=== PATIENT | male | born 2000 | race Caucasian/White ===

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

== ENCOUNTER 2019-08-02 16:49 | Emergency (ER) | payer BC ==
[2019-08-02 17:01] VITALS: BP 130/66
--- NOTE | 2019-08-02 17:24 | UC ---
Complaint Male HPI - HPI Summary HPI Summary: Pt presents with gradual onset of left scrotal and testicular pain that began last evening and today. Pt states that he was climbing in and out of his apartments window due to his door lock breaking and being locked in and out of his apartment. He states that he strained himself by lifting himself by lifting himself in and out of the window. Pt also states he had unprotected sexual intercourse and may have been exposed to a STD - History of Current Complaint Chief Complaint: UCGeneralIllness Stated Complaint: UPPER LEFT LEG PAIN Time Seen by Provider: 08/02/19 17:04 Hx Obtained From: Patient Onset/Duration: Gradual Onset, Lasting Hours, Still Present Timing: Constant Severity Initially: Mild Severity Currently: Moderate Pain Intensity: 5 Location: Scrotum Character: Constant Pressure - mild pressure Aggravating Factor(s): Other - standing Alleviating Factor(s): Other - rest Associated Signs And Symptoms: Positive: Negative - Risk Factors Testicular Torsion: Negative - Allergies/Home Medications Allergies/Adverse Reactions: Allergies Allergy/AdvReac Type Severity Reaction Status Date / Time No Known Allergies Allergy Verified 08/02/19 16:58 Home Medications: Home Medications NK [No Home Medications Reported] 08/02/19 [History Confirmed 08/02/19] PMH/Surg Hx/FS Hx/Imm Hx Previously Healthy: Yes - Surgical History Surgical History: Yes Surgery Procedure, Year, and Place: R hand - Family History Known Family History: Positive: Hypertension, Non-Contributory - Social History Occupation: Student - [employer] Lives: Dormitory/Roommates Alcohol Use: Weekly Substance Use Type: Marijuana Substance Use Comment - Amount & Last Used: weekly Smoking Status (MU): Never Smoked Tobacco Have You Smoked in the Last Year: No - Immunization History Vaccination Up to Date: Yes Review of Systems All Other Systems Reviewed And Are Negative: Yes Constitutional: Positive: Negative Skin: Positive: Negative Eyes: Positive: Negative ENT: Positive: Negative Respiratory: Positive: Negative Cardiovascular: Positive: Negative Gastrointestinal: Positive: Negative Genitourinary: Positive: Other - left side testicle pain Motor: Positive: Negative Neurovascular: Positive: Negative Musculoskeletal: Positive: Negative Neurological: Positive: Negative Psychological: Positive: Negative Is Patient Immunocompromised?: No Physical Exam - Summary Physical Exam Summary: Ansley mckeon for genital exam. Triage Information Reviewed: Yes Appearance: Well-Appearing Vital Signs: Initial Vital Signs Temp 98.1 F 08/02/19 16:58 Pulse 107 08/02/19 16:58 Resp 18 08/02/19 16:58 BP 130/66 08/02/19 16:58 Pulse Ox 100 08/02/19 16:58 Vital Signs Reviewed: Yes Eye Exam: Normal ENT Exam: Normal Dental Exam: Normal Neck exam: Normal Respiratory Exam: Normal Respiratory: Positive: No respiratory distress Male Genital Exam: Positive: Normal Genitalia, Other - right testicle significantly higher than left. No masses, tenderness, varicocele, no mass, no strangualtion or discoloration noted. Pt declined pain with PE. Ansley Buitrago RN back up worker Musculoskeletal Exam: Normal Neurological Exam: Normal Psychological Exam: Normal Skin Exam: Normal Complaint Male Course/Dx - Course Course Of Treatment: Pt was recommended to go to closest ER for further testing and evaluation. Pt verbalized understanding and agreed to plan of care. - Differential Dx/Diagnosis Differential Diagnosis/HQI/PQRI: Epididymitis, Testicular Torsion, Urinary Tract Infection Provider Diagnosis: Testicular pain, left Discharge ED - Sign-Out/Discharge Documenting (check all that apply): Patient Departure All imaging exams completed and their final reports reviewed: No Studies - Discharge Plan Condition: Stable Disposition: HOME-RECOMMEND TO ED Patient Education Materials: Testicle Pain (ED), Scrotal Pain (ED) Referrals: [facility] [Outside] No Primary Care Phys,[facility] [Primary Care Provider] - Additional Instructions: It is recommended that that you go to the closest emergency room immediately for further evaluation and testing. - Billing Disposition and Condition Condition: STABLE Disposition: Home-Recommend to ED
[2019-08-06 12:39] LABS: Chlamydia trachomatis NAA Negative (Negative); Neisseria gonorrhoeae (GC) NAA Negative (Negative)
== END 2019-08-02 17:33 | disposition home health service (06) ==
LOC: UCCORT 16:49
DX: N50.812 Left testicular pain (principal)
CPT/HCPCS: 87491; 87591; 99212; G0463